=== PATIENT | male | born 1980 | race Caucasian/White ===

== ENCOUNTER → 2016-08-10 | Outpatient (CLI) | payer MEDICAID ==
[~2016-08-10] MED LIST: ATIVAN 1 MG1 MG PO; BETADINE SOLUT118 ML TOP; COLACE100 MG PO; FLONASE 50 MCG/16 GM NOSE; MEGACE40 MG PO; MILK OF MA400 MG/5 M; MILK OF MA400 MG/5 M PO; MINERIN CREME454 GM TOP; MIRALAX17 GM PO; NEOSPORIN1 PKT TOP; NORVASC5 MG PO; PAXIL20 MG PO; PRAMOSONE30 G1 TOP; PRINIVIL OR ZES10 MG PO; PROTONIX40 MG PO; RISPERDAL0.5 MG PO; ROBITUSSIN DM120 ML PO; TYLENOL WITH C1 EACH PO; TYLENOL325 MG PO; VALIUM5 MG PO; ZOFRAN ODT8 MG PO; ZYRTEC10 MG PO
== END | disposition disaster alternative care site (69) ==
LOC: GRAD 07-07 10:00 → GOPD 08-03 → GRAD 09:29 → GOPD 09:30 → GRAD 11:00
DX: Z08 Encounter for follow-up examination after completed treatment for malignant neoplasm (principal); Z85.47 Personal history of malignant neoplasm of testis; N28.1 Cyst of kidney, acquired
CPT/HCPCS: J2001; J7030; Q9967